=== PATIENT | female | born 1970 | race Caucasian/White ===

== ENCOUNTER 2021-03-29 08:42 | Outpatient (CLI) | payer OTHER ==
[2021-03-29 10:25] LABS: MICROSCOPIC AUTO
[2021-03-29 10:27] LABS: INTERNATIONAL NORMALIZED RATIO 1.01 (0.93-1.1); PROTHROMBIN TIME 10.8 Seconds (9.6-11.5)
[2021-03-29] MEDS ORDERED: VENL150C6 PO (15:47)
[2021-04-01] MEDS ORDERED: CLON-364 PO (07:57)
[2021-04-01] MEDS ORDERED: FAMO10TA31 PO (07:57)
[2021-04-01] MEDS ORDERED: LISI-170 PO (07:57)
== END 2021-03-29 23:59 | disposition home or self-care (01) ==
LOC: STAR 08:42
PROVIDERS: ATTEND Urology
DX: Z01.818 Encounter for other preprocedural examination (principal); N20.1 Calculus of ureter
CPT/HCPCS: 36415; 81001; 85610; 85730; 87086

== ENCOUNTER 2021-04-03 11:38 | Day surgery (SDC) | payer OTHER ==
[~2021-04-03] VITALS: Ht 162.6 cm; Wt 71.6 kg
[~2021-04-03 11:38] MED LIST: CLON-364 PO; FAMO10TA31 PO; LISI-170 PO; VENL150C6 PO
[2021-04-03 12:13] VITALS: BP 142/98
[2021-04-03] MEDS ORDERED: CHLORHEXIDINE 15 ML UDC PO ONE (12:30)
[2021-04-03] MEDS ORDERED: LIDOCAINE-MPF 2% ,5ML ONE (12:45)
[2021-04-03] MEDS ORDERED: OMNIPAQUE 350 MG/ML, 50 ML BOTTLE ONE (12:45)
[2021-04-03] MEDS ORDERED: PROPOFOL 10 MG/ML, 20ML ONE (12:45)
[2021-04-03] MEDS ORDERED: LACTATED RINGERS 1,000 ML IV SCH (13:00)
[2021-04-03] MEDS ORDERED: CEFAZOLIN 1,000 MG ONE (13:13)
[2021-04-03] MEDS ORDERED: FENTANYL PF 100 MCG/2ML ONE (13:22)
[2021-04-03] MEDS ORDERED: ONDANSETRON 2MG/ML, 2ML ONE (13:24)
[2021-04-03] MEDS ORDERED: morphine SULFATE 10 MG/ML, 1ML IVPush PRN (13:30)
[2021-04-03] MEDS ORDERED: HYDROcodone/APAP 7.5-325MG/15ML UDC PO PRN (13:30)
[2021-04-03] MEDS ORDERED: PROMETHAZINE 25 MG/ML, 1ML IVPush PRN (13:30)
[2021-04-03] MEDS ORDERED: ACETAMINOPHEN 325 MG TABLET PO PRN (13:30)
[2021-04-03] MEDS ORDERED: FENTANYL PF 100 MCG/2ML IV PRN (13:30)
== END 2021-04-03 15:10 | disposition home or self-care (01) ==
LOC: OUT 11:38
PROVIDERS: ATTEND Urology
DX: N13.5 Crossing vessel and stricture of ureter without hydronephrosis (principal); I10 Essential (primary) hypertension; Z79.899 Other long term (current) drug therapy; Z87.891 Personal history of nicotine dependence; Z88.8 Allergy status to other drugs, medicaments and biological substances
CPT/HCPCS: 52332; 52344; 74018; C1726; C1758; C1769; C2617; J0690; J2405; J2704; J3010; J7120; Q9967; 76000